=== PATIENT | female | born 1970 | race Asian ===

== ENCOUNTER 2021-09-10 12:42 | Emergency (ER) | payer OTHER ==
[~2021-09-10] VITALS: Ht 160 cm; Wt 51.3 kg
--- NOTE | 2021-09-10 12:46 | NUR ---
TO ER BED 9, [id number] C/O SEIZURE WHILE AT WORK. BG 123. VERBALLY RESPONSIVE [employer]. NO ORAL/HEAD TRAUMA, AAOX3, BREATHING EVEN AND NON LABORED, CONNECTED TO MONITOR
[2021-09-10] MEDS ORDERED: LAMO100T2 PO (14:08)
--- NOTE | 2021-09-10 14:22 | NUR ---
IV removed. Catheter intact and site benign. Pressure and 4x4 applied to site. No bleeding noted.Patient discharged to home in stable condition. Written and verbal after care instructions given. Patient verbalizes understanding of instruction.
--- NOTE | 2021-09-10 14:23 | NUR ---
Patient discharged to home in stable condition. RX Written and verbal after care instructions given. Patient verbalizes understanding of instruction. PT ambulatory with a steady gait
[2021-09-10] MEDS ORDERED: LamoTRIgine 100 MG TABLET PO SCH (14:30)
[2021-09-10 14:50] VITALS: BP 132/80
== END 2021-09-10 14:53 | disposition home or self-care (01) ==
LOC: ER 13:17
DX: G40.909 Epilepsy, unspecified, not intractable, without status epilepticus (principal); Z91.14 Patient's other noncompliance with medication regimen